=== PATIENT | male | born 1995 | race Hispanic/Latino ===

== ENCOUNTER 2023-08-05 17:20 | Emergency (ER) | payer OTHER ==
[~2023-08-05] VITALS: Ht 177.8 cm; Wt 84.4 kg
[2023-08-05 17:29] VITALS: BP 123/75; PULSE 64; RESP 16; O2SAT 100
[2023-08-05] MEDS ORDERED: ONDA4TAB10 PO (19:25)
== END 2023-08-05 19:46 | disposition home or self-care (01) ==
LOC: EDH 17:20
DX: G43.909 Migraine, unspecified, not intractable, without status migrainosus (principal); Z88.8 Allergy status to other drugs, medicaments and biological substances